=== PATIENT | male | born 1980 | race Caucasian/White ===

== ENCOUNTER 2022-05-18 14:32 | Inpatient (IN) | payer MEDICAID, SELFPAY ==
[2022-05-18 14:33] VITALS: BP 143/99; PULSE 88; RESP 18; TEMP 36.8; O2SAT 96; BMI 27.2
[2022-05-18 16:46] LABS: Absolute Neutrophil Count 1.2 X10^3/uL (2.0-7.7); Basophil# 0.04 X10^3/uL; Basophil% 1.4 % (0-1); Eosinophil# 0.03 X10^3/uL; Hematocrit 40.1 % (40-54); Lymphocyte % 40.5 % (19-41); Mean Corp Hgb Conc 34.9 g/dL (32-36); Mean Corpuscular Hgb 37.3 pg (27.0-32.0); Mean Corpuscular Volume 106.9 fL (80-94); Mean Platelet Vol. 9.1 fl (6.2-12.0); Monocyte# 0.49 X10^3/uL; Monocyte% 16.6 % (0-10); NRBC Flagged by Analyzer 0 % (0-5); Neutrophil # 1.19 X10^3/uL (2.7-7.7); Neutrophil % 40.2 % (47-70); Platelet Count 200 K/mm3 (150-450); RBC Distribution Width CV 15.3 % (11.6-14.6); RBC Distribution Width SD 61.4 fl (35.1-43.9); Red Blood Count 3.75 M/mm3 (4.6-6.2)
--- NOTE | 2022-05-18 16:52 | EX.ED.SAOD ---
HPI History of Present Illness Chief Complaint: ETOH Intox Informant: patient Narrative Narrative: [id number] male presenting to the emergency department with a chief complaint of alcohol detox. Patient states that it is time for him to quit drinking. He went to rehab several years ago. He states he was sober between 2 and 3 years. He states he is not currently working a recently from his significant other. He states that he is just done drinking. He states that his drink of choice is gin. [facility] Medical History Alcohol abuse Hypertension Home Medications amlodipine 5 mg tablet 5 mg PO DAILY 05/18/22 [History Last Taken Unknown] trazodone 50 mg tablet 50 mg PO QHS 05/18/22 [History Last Taken Unknown] Allergy/AdvReac Type Severity Reaction Status Date / Time No Known Allergies Allergy Verified 05/18/22 14:35 Family History (Updated 05/18/22 @ 18:[address] David Mar MD) Other Hypertension Surgical History History of knee surgery Social History (Updated 05/18/22 @ 16:[address] London Rico DO) current gender identity: male Smoking Status: Never smoker Smokeless tobacco user: chewing tobacco alcohol intake: current alcohol intake frequency: 3 or more drinks per day Alcohol type: hard liquor substance use type: does not use EXAM Physical Exam Const Vital Signs: 05/18/22 14:33 Temperature 98.2 F Temperature Source Temporal Pulse Rate 88 Respiratory Rate 18 Blood Pressure 143/99 H Blood Pressure Mean 113 Pulse Ox 96 Oxygen Delivery Method Room Air Positive well nourished and well developed General Appearance ED: well developed HEENT Reports normocephalic, head/scalp atraumatic and moist mucous membranes Eyes PERRL and EOMs intact bilaterally Neck no lymphadenopathy, supple and no JVD Resp normal respiratory effort and clear to auscultation bilaterally Cardio regular rate, regular rhythm and no murmurs GI normal to inspection, nondistended, normoactive bowel sounds and non-tender Palpation: soft Back/Spine no CVA tenderness and normal ROM Extremity normal to inspection General Extremety ED: Negative for edema General Extremity: Negative for edema Neuro oriented x3 and CN's II-XII intact bilaterally Sensorium / Orientation: alert Motor Exam: strength 5/5 throughout Psych mental status grossly normal Mood & Affect: Negative for depressed or tearful Skin no rashes or lesions noted and no wounds MDM MDM MDM Narrative Medical decision making narrative: Medical screening labs will be obtained. If he is in agreement with the rules of the program I will speak with the hospitalist regarding admission Lab Data Attestation: I reviewed the patient's lab results. Labs: Laboratory Results - last 24 hr 05/18/22 05/18/22 05/18/22 16:33 16:33 17:24 WBC 3.0 L RBC 3.75 L Hgb 14.0 Hct 40.1 MCV 106.9 H MCH 37.3 H MCHC 34.9 RDW Std Deviation 61.4 H RDW Coeff of Stefanie 15.3 H Plt Count 200 MPV 9.1 Immature Gran % (Auto) 0.300 Neut % (Auto) 40.2 L Lymph % (Auto) 40.5 Clark % (Auto) 16.6 H Eos % (Auto) 1.0 Baso % (Auto) 1.4 H Absolute Neuts (auto) 1.2 L Absolute Lymphs (auto) 1.20 Nucleated RBC % 0 PT 13.2 INR 1.0 Urine Opiates Screen NEGATIVE Urine Methadone Screen NEGATIVE Ur Barbiturates Screen NEGATIVE Ur Phencyclidine Scrn NEGATIVE Ur Amphetamines Screen NEGATIVE MDMA (Ecstasy) Screen NEGATIVE U Benzodiazepines Scrn NEGATIVE Urine Cocaine Screen NEGATIVE U Cannabinoids Screen NEGATIVE Ur Drug Screen Comment Discharge Plan Dx/Rx/DC Orders Clinical Impression: Alcoholism, Alcohol withdrawal Disposition Disposition: Acute Care Hospital [facility]
[2022-05-18 16:59] LABS: Prothrombin Time (Protime)PT. 13.2 SECONDS (11.7-14.9)
[2022-05-18 18:12] LABS: Amphetamine Urine VISTA NEGATIVE (<1000 ng/mL); Barbiturate Urine VISTA NEGATIVE (< 200 ng/mL); Benzodiazepine Urine VISTA NEGATIVE (< 200 ng/mL); Cocaine Urine VISTA NEGATIVE (< 300 ng/mL); Ecstacy Urine VISTA NEGATIVE (< 500 ng/mL); Methadone Urine VISTA NEGATIVE (< 300 ng/mL); PCP Urine VISTA NEGATIVE (< 25 ng/mL); THC Urine VISTA NEGATIVE (< 50 ng/mL); Vista UDS pH Range 6
--- NOTE | 2022-05-18 18:19 | HP.PCM.HOS_ITS ---
HPI - General General Date of Admission: 05/18/22 HPI Narrative DELMI REBOLLEDO, is a 42 M who presents to the hospital requesting alcohol detox. He went to rehab several years ago and that he had been sober for about 2 to 3years after that stent in rehab however he started drinking again. He does not seem to be interested in having much of a conversation but states that he is just done drinking and he needs help. He generally drinks gin. [facility] Medical History Alcohol abuse Hypertension Home Medications amlodipine 5 mg tablet 5 mg PO DAILY 05/18/22 [History Last Taken Unknown] trazodone 50 mg tablet 50 mg PO QHS 05/18/22 [History Last Taken Unknown] Allergy/AdvReac Type Severity Reaction Status Date / Time No Known Allergies Allergy Verified 05/18/22 14:35 Family History (Updated 05/18/22 @ 18:[address] David Mar MD) Other Hypertension Surgical History History of knee surgery Social History (Updated 05/18/22 @ 16:[address] London Rico DO) current gender identity: male Smoking Status: Never smoker Smokeless tobacco user: chewing tobacco alcohol intake: current alcohol intake frequency: 3 or more drinks per day Alcohol type: hard liquor substance use type: does not use ROS Constitutional Constitutional: Denies chills, fatigue, fever(s) or malaise Eyes Eyes: Denies blurry vision ENT HEENT: Denies headache(s) or nasal discharge Cardiovascular Cardiovascular: Denies chest pain, dyspnea on exertion or syncope Respiratory/Chest Respiratory/Chest: Denies cough, shortness of breath at rest or shortness of breath with exertion Gastrointestinal Gastrointestinal: Denies constipation, diarrhea, nausea or vomiting Genitourinary Genitourinary: Denies dysuria Neurologic Neurologic: Reports tremor(s); Denies focal weakness or numbness Psychiatric Psychiatric: Reports anxiety; Denies depression Vital Signs Vital Signs Vital Signs: 05/18/22 14:33 Temperature 98.2 F Temperature Source Temporal Pulse Rate 88 Respiratory Rate 18 Blood Pressure 143/99 H Blood Pressure Mean 113 Pulse Ox 96 Oxygen Delivery Method Room Air Weight Weight: 218 lb Body Mass Index (BMI) 27.2 Physical Exam Const alert, oriented x3 and no apparent distress Constitutional Narrative: Tremors General Appearance: cooperative HEENT normocephalic and moist oral mucous membranes Eyes PERRL, EOMs intact bilaterally and conjunctivae normal Neck supple and no JVD Resp normal respiratory effort, no retractions, no use of accessory muscles and clear to auscultation bilaterally Auscultation: Negative for crackles, rales, rhonchi or wheezes Cardio regular rate, regular rhythm, S1 normal heart sound, S2 normal heart sound and no murmurs GI soft to palpation, non-tender and non-distended; Negative for hepatosplenomegaly Extremity no clubbing, cyanosis or edema Skin no rashes or lesions noted Neuro no focal motor deficits and no sensory deficits noted Psych Mood & Affect: anxious and flat affect Results Lab / Micro Data Result Diagrams: 05/18/22 16:33 05/18/22 16:33 Labs: Laboratory Results - last 24 hr 05/18/22 16:33: WBC 3.0 L, RBC 3.75 L, Hgb 14.0, Hct 40.1, MCV 106.9 H, MCH 37.3 H, MCHC 34.9, RDW Std Deviation 61.4 H, RDW Coeff of Stefanie 15.3 H, Plt Count 200, MPV 9.1, Immature Gran % (Auto) 0.300, Neut % (Auto) 40.2 L, Lymph % (Auto) 40.5 , [place] % (Auto) 16.6 H, Eos % (Auto) 1.0, Baso % (Auto) 1.4 H, Absolute Neuts (auto) 1.2 L, Absolute Lymphs (auto) 1.20, Nucleated RBC % 0 05/18/22 16:33: PT 13.2, INR 1.0 05/18/22 17:24: Urine Opiates Screen NEGATIVE, Urine Methadone Screen NEGATIVE, Ur Barbiturates Screen NEGATIVE, Ur Phencyclidine Scrn NEGATIVE, Ur Amphetamines Screen NEGATIVE, MDMA (Ecstasy) Screen NEGATIVE, U Benzodiazepines Scrn NEGATIVE, Urine Cocaine Screen NEGATIVE, U Cannabinoids Screen NEGATIVE, Ur Drug Screen Comment Assessment & Plan Assessment/Plan (1) Alcohol withdrawal: PLAN: Plan 1. Acute alcohol withdrawal ? Continue with the alcohol withdrawal protocol ? We will have him follow-up with 180 while here to develop an outpatient plan ? CIWA scores of 2 on admission, will continue to monitor 2. Hypertension ? Stable ? Continue with [facility] DVT: Ambulation Charges/Coding Visit Charges Inpatient E&M: 53788 Init Hosp L2
[2022-05-18 18:49] VITALS: BP 124/85; PULSE 59; RESP 17; TEMP 36.7; O2SAT 93
[2022-05-18 19:05] VITALS: BMI 25.8
[2022-05-18 19:06] VITALS: BMI 25.8
[2022-05-18 19:15] VITALS: BP 122/88; PULSE 66; RESP 18; TEMP 36.9; O2SAT 97
--- NOTE | 2022-05-18 19:54 | CM.ED ---
KAROLINE Note Reason for consult: RAMP Referral Source: Case Find SW met with patient. Patient stated he is at the hospital for detox from alcohol. SW asked patient how much alcohol drank and he said enough. Patient reports he has not had beer for 2 months but drinks 10-16 shots a day. Patient reports he is currently linked with Ronda at [facility] for AOD counseling. Patient was educated on the rules for the RAMP program including 1) no visitors 2) no phones and 3) belongings locked. Patient said I need my phone for my unemployment check. SW advised that phones will need to be secured and he will not have access to it while in detox. Patient verbalized understanding. Patient voiced he has signed the RAMP contract. SW called infection control manager treatment navigator and left voice mail message advising of RAMP admission. KAROLINE received call from Gely from Treatment Navigator and SW updated her with information on patient's RAMP admission. Plan: AD RAMOS
[2022-05-18 19:55] LABS: ALB/GLOB Ratio 1.2 RATIO (0.9-2.4); AST(SGOT) 176 U/L (15-37); Alanine Aminotransfer ALT/SGPT 91 U/L (16-61); Alkaline Phosphatase 76 U/L (45-117); Anion Gap 12 (5-15); BUN 7 mg/dL (7-18); BUN/Creat Ratio 12.2 RATIO (10-20); Calcium,Total 8.5 mg/dL (8.5-10.1); Chloride 108 mmol/L (98-107); Creatinine, Serum 0.57 mg/dL (0.70-1.30); EST Glomerular Filtration Rate 166 mL/min (>60); Est Glom Filt Rate - Afr Amer 201 mL/min (>60); Estimated Creatinine Clearance 220.48 ml/min; Globulin 3.2 g/dL (2.2-4.2); Glucose 95 mg/dL (74-106); Potassium 3.5 mmol/L (3.5-5.1); Protein, Total 7.2 g/dL (6.4-8.2); Sodium Level 145 mmol/L (136-145)
[2022-05-18 20:00] VITALS: BP 144/78; PULSE 65; RESP 16; TEMP 36.9; O2SAT 98
[2022-05-18] MEDS: Phenobarbital 32.4 MG Tablet 64.8 MG PO (20:03)
[2022-05-18] MEDS: Gabapentin 300 MG Capsule PO (20:03)
--- NOTE | 2022-05-18 20:35 | NURSING ---
pt broke his zip tie on his tote and got his phone out and states he was getting his shirt after nurse had already reminded him that he would get his personal belongings back at discharge. reviewed the contract he signed at admit. pt states he wants to stay as a pt and he understands the contract. phone placed back in tote and zip ties replaced. nursing supervisor cutting and sewing room aware and she will let security know.
--- NOTE | 2022-05-18 20:40 | NURSING ---
Patient non compliant with RAMP contract. States that he is understanding of what the contract states, Both this nurse and RN told him twice that if he cannot comply we will ask for him to leave. Patient broke zip ties off of tote, stated he wanted his shirt, explained he cannot have his shirt. Minutes later checked cameras and he was lying in bed on his phone after getting into to tote once again. Given contract on paper and left in room. RN notified Division Leader.
[2022-05-18] MEDS: traZODone 100 MG Tablet PO (22:03)
[2022-05-19] VITALS (8 sets, daily range): BP systolic 124–147; BP diastolic 78–97; PULSE 60–94; RESP 14–18; TEMP 36.4–37.2; O2SAT 98–99
[2022-05-19] MEDS: hydrOXYzine PAM 25 MG Capsule 50 MG PO (00:51)
[2022-05-19] MEDS: Phenobarbital 32.4 MG Tablet 64.8 MG PO ×7 (00:51→23:13)
[2022-05-19] MEDS: Gabapentin 300 MG Capsule PO (05:06)
[2022-05-19] MEDS: Folic Acid 1 MG Tablet PO (08:09)
[2022-05-19] MEDS: Thiamine Hydrochloride 100 MG Tablet PO (08:10)
--- NOTE | 2022-05-19 08:50 | PCM.PN.HOSP ---
Subjective Subjective Significant worsening overnight, CIWA was of 21 Objective Data Objective Data Vital Signs: Vital Signs Temp Pulse Resp BP Pulse Ox 98.5 F 68 14 146/88 H 99 05/19/22 05:11 05/19/22 05:11 05/19/22 05:11 05/19/22 05:11 05/19/22 05:11 Oxygen Delivery Method Room Air Weight: 223 lb 8.78 oz Body Mass Index (BMI) 25.8 Lab / Micro Data Result Diagrams: 05/18/22 16:33 05/18/22 16:33 Labs: Laboratory Results - last 24 hr 05/18/22 16:33: WBC 3.0 L, RBC 3.75 L, Hgb 14.0, Hct 40.1, MCV 106.9 H, MCH 37.3 H, MCHC 34.9, RDW Std Deviation 61.4 H, RDW Coeff of Stefanie 15.3 H, Plt Count 200, MPV 9.1, Immature Gran % (Auto) 0.300, Neut % (Auto) 40.2 L, Lymph % (Auto) 40.5, [place] % (Auto) 16.6 H, Eos % (Auto) 1.0, Baso % (Auto) 1.4 H, Absolute Neuts (auto) 1.2 L, Absolute Lymphs (auto) 1.20, Nucleated RBC % 0 05/18/22 16:33: PT 13.2, INR 1.0 05/18/22 16:33: Sodium 145, Potassium 3.5, Chloride 108 H, Carbon Dioxide 25.0, Anion Gap 12, BUN 7, Creatinine 0.57 L, Estim Creat Clear Calc 220.48, Est GFR (MDRD) Af Amer 201, Est GFR (MDRD) Non-Af 166, BUN/Creatinine Ratio 12.2, Glucose 95, Calcium 8.5, Total Bilirubin 0.70, AST 176 H, ALT 91 H, Alkaline Phosphatase 76, Total Protein 7.2, Albumin 4.0, Globulin 3.2, Albumin/Globulin Ratio 1.2 05/18/22 16:33: Ethyl Alcohol 465.0 H* 05/18/22 17:24: Urine Opiates Screen NEGATIVE, Urine Methadone Screen NEGATIVE, Ur Barbiturates Screen NEGATIVE, Ur Phencyclidine Scrn NEGATIVE, Ur Amphetamines Screen NEGATIVE, MDMA (Ecstasy) Screen NEGATIVE, U Benzodiazepines Scrn NEGATIVE, Urine Cocaine Screen NEGATIVE, U Cannabinoids Screen NEGATIVE, Ur Drug Screen Comment Physical Exam Const alert, oriented x3 and no apparent distress Constitutional Narrative: Tremors General Appearance: cooperative HEENT normocephalic and moist oral mucous membranes Eyes PERRL, EOMs intact bilaterally and conjunctivae normal Neck supple and no JVD Resp normal respiratory effort, no retractions, no use of accessory muscles and clear to auscultation bilaterally Auscultation: Negative for crackles, rales, rhonchi or wheezes Cardio regular rate, regular rhythm, S1 normal heart sound, S2 normal heart sound and no murmurs GI soft to palpation, non-tender and non-distended; Negative for hepatosplenomegaly Extremity no clubbing, cyanosis or edema Skin no rashes or lesions noted Neuro no focal motor deficits and no sensory deficits noted Psych Mood & Affect: anxious and flat affect Assessment & Plan Assessment/Plan (1) Alcohol withdrawal: PLAN: Plan 1. Acute alcohol withdrawal ? Continue with the alcohol withdrawal protocol ? We will have him follow-up with 180 while here to develop an outpatient plan ? CIWA scores of 2 on admission with worsening to 21 overnight 2. Hypertension ? Stable ? Continue with Norvasc DVT: Ambulation Charges/Coding Visit Charges Inpatient E&M: 10383 Subs Hosp L2
[2022-05-19] MEDS: amLODIPine 5 MG Tablet PO (10:58)
[2022-05-19] MEDS: traZODone 100 MG Tablet PO (23:13)
[2022-05-20] MEDS: Phenobarbital 32.4 MG Tablet 64.8 MG PO ×5 (04:49→20:03)
[2022-05-20 04:53] VITALS: BP 130/91; PULSE 62; RESP 16; TEMP 37.3; O2SAT 96
[2022-05-20 07:50] VITALS: BP 134/96; PULSE 68; RESP 18; TEMP 37.1; O2SAT 99
[2022-05-20] MEDS: Folic Acid 1 MG Tablet PO (07:54)
[2022-05-20] MEDS: amLODIPine 5 MG Tablet PO (07:54)
[2022-05-20] MEDS: Thiamine Hydrochloride 100 MG Tablet PO (07:54)
--- NOTE | 2022-05-20 09:45 | PN.HOSP_ITS ---
Subjective Subjective Doing well, CIWA of 1, better today. No issues overnight Objective Data Objective Data Vital Signs: Vital Signs Temp Pulse Resp BP Pulse Ox 98.7 F 68 18 134/96 H 99 05/20/22 07:50 05/20/22 07:50 05/20/22 07:50 05/20/22 07:50 05/20/22 07:50 Oxygen Delivery Method Room Air Weight: 223 lb 8.78 oz Body Mass Index (BMI) 25.8 Medical Nutrition Assessment Dietitian: Malnutrition Criteria Met Start: 05/19/22 1 0:46 Freq: Status: Active Protocol: Document 05/19/22 10:47 RMA (Rec: 05/19/22 10:47 RMA [id number]) Nutrition Malnutrition Evidence of Malnutrition Exists Yes Malnutrition (severe): Social/Behavioral/ Environmental Evidenced By Suboptimal Energy Intake ( Severe),Weight Loss (Severe) Clinical Problem Chronic Disease or Condition Related Malnutrition Etiology Severe protein-calorie malnutrition in the context of social circumstance related to alcohol abuse and inadequate nutrient-dense oral intake Signs/Symptoms as evidenced by ~6-7% wt loss x past 1-2 months and PO meeting less than 50% estimated nutrition needs x past 1 month Status Active Problem Recommendation Dietitian Recommendations/Changes Continue regular diet---will add extra 1-2 oz protein/meat Q meal. Will d/c ensure enlive w/ medpass as per patient request /refusal. Additional ONS as needed, will encourage intake with meal trays for now as per patient request. Lab / Micro Data Result Diagrams: 05/18/22 16:33 05/18/22 16:33 Physical Exam Narrative Const alert, oriented x3 and no apparent distress General Appearance: cooperative HEENT normocephalic and moist oral mucous membranes Eyes PERRL, EOMs intact bilaterally and conjunctivae normal Neck supple and no JVD Resp normal respiratory effort, no retractions, no use of accessory muscles and clear to auscultation bilaterally Auscultation: Negative for crackles, rales, rhonchi or wheezes Cardio regular rate, regular rhythm, S1 normal heart sound, S2 normal heart sound and no murmurs GI soft to palpation, non-tender and non-distended; Negative for hepatosplenomegaly Extremity no clubbing, cyanosis or edema Skin no rashes or lesions noted Neuro no focal motor deficits and no sensory deficits noted Psych Mood & Affect: anxious and flat affect Assessment & Plan Assessment/Plan (1) Alcohol withdrawal: PLAN: Plan 1. Acute alcohol withdrawal ? Continue with the alcohol withdrawal protocol ? Was evaluated by 180 and set him up with therapy and down in [place] ? CIWA is better, he has an appointment on Saturday however he would like to go home tomorrow if possible 2. Hypertension ? Stable ? Continue with Norvasc DVT: Ambulation Charges/Coding Visit Charges Inpatient E&M: 34898 Subs Hosp L2
[2022-05-20 15:43] VITALS: BP 138/97; PULSE 62; RESP 18; TEMP 37.3; O2SAT 99
[2022-05-20 19:56] VITALS: BP 147/104; PULSE 78; RESP 18; TEMP 37.2; O2SAT 99
[2022-05-20] MEDS: traZODone 100 MG Tablet PO (22:02)
[2022-05-21] MEDS: Phenobarbital 32.4 MG Tablet 64.8 MG PO ×2 (00:40→04:40)
[2022-05-21 02:09] VITALS: BP 149/95; PULSE 68; RESP 18; TEMP 36.8; O2SAT 98
[2022-05-21 07:44] VITALS: BP 145/114; PULSE 60; RESP 14; TEMP 36.9; O2SAT 100
[2022-05-21] MEDS: amLODIPine 5 MG Tablet PO (07:48)
[2022-05-21] MEDS: Folic Acid 1 MG Tablet PO (07:48)
[2022-05-21] MEDS: Thiamine Hydrochloride 100 MG Tablet PO (07:48)
--- NOTE | 2022-05-21 09:27 | DCINST_ITS ---
Discharge Instructions Diet Discharge Diet: No restrictions Dressing / Incision Call your doctor if you observe: Fever of 101 or Higher, Shortness of breath, Dizziness, Fainting spells, Swelling in the ankles, Chest pain and Increased palpitations (irregular heartbeat) Follow Up Care Test Results: Test results from this visit will be discussed in further detail at your follow- up appointment, if applicable. Discharge Plan Admission Admit Date/Time: 05/18/22 18:17 Attending Provider: David Mar Primary Care Provider: Blas Villagomez Discharge Orders/Prescriptions Prescriptions: Continued trazodone 50 mg Tablet 50 mg PO QHS amlodipine 5 mg Tablet 5 mg PO DAILY Referrals / Follow Up: Blas Villagomez MD [Primary Care Provider] - Within 1 Week NOT,DEFINED [NON-STAFF] - Disposition Disposition (needs filled in before D/C Order can be placed): Home, Self Care
--- NOTE | 2022-05-21 09:28 | PCM.DC.SUM ---
Providers Date of Admission: 05/18/22 Primary Care Physician: Dr. Blas Villagomez MD Reason For Visit: ETOH WITHDRAWL Diagnosis Discharge Diagnosis (1) Alcohol withdrawal: Status: Acute Code(s): F10.239 - Alcohol dependence with withdrawal, unspecified Medications at Discharge Home Medications amlodipine 5 mg tablet 5 mg PO DAILY bp 05/18/22 trazodone 50 mg tablet 50 mg PO QHS mood 05/18/22 Hospital Course Operations None Procedures None Summary of Care Provided Minutes Spent on Discharge: 37 Hospital Course: Per HPI: DELMI REBOLLEDO, is a 42 M who presents to the hospital requesting alcohol detox.? He went to rehab several years ago and that he had been sober for about 2 to 3years after that stent in rehab however he started drinking again.? He does not seem to be interested in having much of a conversation but states that he is just done drinking and he needs help.? He generally drinks gin. Hospital Course: 1.? Acute alcohol withdrawal ? Continue with the alcohol withdrawal protocol ? Was evaluated by 180 and set him up with therapy and down in [place] ? CIWA is better ? Feels much better today and I discussed with him the possibility for discharge, he expressed understanding of the risk benefits going home and would like to go home today. He does have a scheduled appointment with the rehab down in [place] on Saturday and he thinks that he will be able to stay away from alcohol between now and then. 2.? Hypertension ? Stable ? Continue with Norvasc Physical Exam Narrative Const alert, oriented x3 and no apparent distress General Appearance: cooperative HEENT normocephalic and moist oral mucous membranes Eyes PERRL, EOMs intact bilaterally and conjunctivae normal Neck supple and no JVD Resp normal respiratory effort, no retractions, no use of accessory muscles and clear to auscultation bilaterally Auscultation: Negative for crackles, rales, rhonchi or wheezes Cardio regular rate, regular rhythm, S1 normal heart sound, S2 normal heart sound and no murmurs GI soft to palpation, non-tender and non-distended; Negative for hepatosplenomegaly Extremity no clubbing, cyanosis or edema Skin no rashes or lesions noted Neuro no focal motor deficits and no sensory deficits noted Psych Mood & Affect: anxious and flat affect Medical Records Data Medical Nutrition Assessment Dietitian: Malnutrition Criteria Met Start: 05/19/22 10:46 Freq: Status: Active Protocol: Document 05/19/22 10:47 RMA (Rec: 05/19/22 10:47 RMA [id number]) Nutrition Malnutrition Evidence of Malnutrition Exists Yes Malnutrition (severe): Social/Behavioral/ Environmental Evidenced By Suboptimal Energy Intake ( Severe),Weight Loss (Severe) Clinical Problem Chronic Disease or Condition Related Malnutrition Etiology Severe protein-calorie malnutrition in the context of social circumstance related to alcohol abuse and inadequate nutrient-dense oral intake Signs/Symptoms as evidenced by ~6-7% wt loss x past 1-2 months and PO meeting less than 50% estimated nutrition needs x past 1 month Status Active Problem Recommendation Dietitian Recommendations/Changes Continue regular diet---will add extra 1-2 oz protein/meat Q meal. Will d/c ensure enlive w/ medpass as per patient request /refusal. Additional ONS as needed, will encourage intake with meal trays for now as per patient request. Weight / BMI Weight Weight: 223 lb 8.78 oz Body Mass Index (BMI) 25.8 ABG / Lab / Microbiology Data Result Diagrams: 05/18/22 16:33 05/18/22 16:33 D/C Instructions Discharge Diet: No restrictions Call your doctor if you observe: Fever of 101 or Higher, Shortness of breath, Dizziness, Fainting spells, Swelling in the ankles, Chest pain and Increased palpitations (irregular heartbeat) Meaningful Use Info Meaningful Use Diagnoses (Choose all that apply): None applicable Discharge Plan Admission Admit Date/Time: 05/18/22 18:17 Attending Provider: David Mar Primary Care Provider: Blas Villagomez Discharge Orders/Prescriptions Prescriptions: Continued trazodone 50 mg Tablet 50 mg PO QHS amlodipine 5 mg Tablet 5 mg PO DAILY Referrals / Follow Up: Blas Villagomez MD [Primary Care Provider] - Within 1 Week NOT,DEFINED [NON-STAFF] - Disposition Disposition (needs filled in before D/C Order can be placed): Home, Self Care Charges/Coding Visit Charges Inpatient E&M: 00020 Disch Hosp
--- NOTE | 2022-05-21 09:47 | ADDICTION ---
Pt was seen this weekend by on-call addiction coordinator. His d/c plan and assessments were faxed and placed in his charts. He has an appointment Saturday in [place] at [facility] with Ronda.
== END 2022-05-21 11:21 | disposition home or self-care (01) | DRG 772 ==
LOC: ED 17:44 → MS3 18:35
PROVIDERS: Admitting Provider Family Medicine; Emergency Provider Emergency Medicine; PCP Family Medicine; Visit Provider Family Medicine
DX: F10.239 Alcohol dependence with withdrawal, unspecified (principal); E43 Unspecified severe protein-calorie malnutrition; I10 Essential (primary) hypertension; F17.220 Nicotine dependence, chewing tobacco, uncomplicated; Z68.27 Body mass index [BMI] 27.0-27.9, adult; Z79.899 Other long term (current) drug therapy
CPT/HCPCS: 80053; 80307; 82077; 85025; 85610; 97802; 99284; 99406; A4216

== ENCOUNTER 2023-01-28 20:44 | Inpatient (IN) | payer MEDICAID, SELFPAY ==
[2023-01-28 20:45] VITALS: BP 134/85; PULSE 81; RESP 15; TEMP 36.6; O2SAT 99
--- NOTE | 2023-01-28 22:14 | EKG12_ITS ---
Test Reason : DYSRHYTHMIA Blood Pressure : / mmHG Vent. Rate : 068 BPM Atrial Rate : 068 BPM P-R Int : 154 ms QRS Dur : 086 ms QT Int : 420 ms P-R-T Axes : 033 022 025 degrees QTc Int : 446 ms Normal sinus rhythm Septal infarct , age undetermined Abnormal ECG Confirmed by STEPHEN ACOSTA, FERCHO ([id number]), book editor DEMETRIO FLANAGAN ([id number]) on 01/30/2023 1:16:41 PM Referred By: TL Confirmed By:FERCHO MITCHELL MD
--- NOTE | 2023-01-28 22:15 | EX.ED.DYSGE1 ---
HPI History of Present Illness Chief Complaint: Seizure Informant: patient and family Narrative Narrative: Presents by private vehicle here with sister and mother witnessed seizure 7:30 PM. Patient history of daily alcohol use with drink of choice is gin. 6-8 shots a day. He wakes up with morning tremors. He has not had seizures in the past. He reports he is trying to detox himself. Report he is vomiting throughout the day. Last drink last evening. Mother witnessed 2 minutes tonic-clonic activity with postictal period. he has not had seizures in the past. Patient with history of hypertension per sister. Denies any recreational drug use. He had alcohol detox this past summer he was transferred over to [facility] however reported after going home he relapsed. States currently is not nauseated. He would like help with his alcohol. Denies homicidal or suicidal ideations. Prior similar symptoms: No PFSH PFSH Medical History Alcohol abuse Alcoholism Hypertension Home Medications amlodipine 5 mg tablet 5 mg PO DAILY bp 05/18/22 [History Last Taken 05/18/22] trazodone 50 mg tablet 50 mg PO QHS mood 05/18/22 [History Last Taken 05/17/22] Allergy/AdvReac Type Severity Reaction Status Date / Time No Known Allergies Allergy Verified 01/28/23 20:48 Family History Other Hypertension Surgical History History of knee surgery Social History Smoking Status: Never smoker Smokeless tobacco user: chewing tobacco alcohol intake: current alcohol intake frequency: 3 or more drinks per day Alcohol type: hard liquor substance use type: does not use ROS ROS ED Constitutional Constitutional ED: Denies chills, fever(s) or sweats Eyes Eyes: Denies change in vision ENT ENT ED: Denies dysphagia or sore throat Cardiovascular Cardiovascular: Denies chest pain, leg edema, palpitations or racing heartbeat Respiratory/Chest Respiratory/Chest: Denies cough, dyspnea or dyspnea on exertion Gastrointestinal Gastrointestinal: Denies abdominal pain, diarrhea, nausea or vomiting Genitourinary Genitourinary ED: Denies dysuria, hematuria or urinary frequency Musculoskeletal Musculoskeletal: Denies back pain, extremity pain or neck pain Integumentary Denies rash or wounds Neurologic Neurologic: Reports other Details: Seizure ; Denies headache(s), paresthesias or weakness EXAM Physical Exam Const Vital Signs: 01/28/23 20:45 Temperature 97.8 F Temperature Source Temporal Pulse Rate 81 Respiratory Rate 15 Blood Pressure 134/85 H Blood Pressure Mean 101 Pulse Ox 99 Oxygen Delivery Method Room Air Positive well nourished and well developed General Appearance ED: well developed and NAD HEENT Reports moist mucous membranes HEENT Narrative: Bilateral tongue abrasion, no active bleeding no laceration. normocephalic and atraumatic Eyes PERRL, EOMs intact bilaterally and conjunctivae normal General Eye ED: Yes normal appearance of both eyes Neck no lymphadenopathy and supple General: Negative for tenderness Chest Wall Chest: Negative for tenderness Resp normal respiratory effort and normal air movement Effort and Inspection: symmetric chest movement; Negative for respiratory distress Cardio regular rate, regular rhythm and no murmurs Peripheral Pulses: pulses 2+ throughout GI normal to inspection, nondistended, normoactive bowel sounds and non-tender Palpation: Negative for guarding or rebound tenderness present Back/Spine no CVA tenderness and no thoracic nor lumbar tenderness Extremity normal to inspection General Extremety ED: Negative for edema or tenderness General Extremity: Negative for edema Neuro oriented x3, CN's II-XII intact bilaterally and no sensory deficits noted Sensorium / Orientation: awake and alert Skin no rashes or lesions noted and no wounds MDM MDM MDM Narrative Medical decision making narrative: Interventions / MDM: Differential diagnosis: Seizure new onset, alcohol withdrawal seizure, alcoholism Diagnosis considered but do not suspect: Brain tumor, however negative CT scan My EKG interpretation: sinus rate of 68, no ST or T wave changes QTc 446. Imaging independently reviewed and interpreted by myself: CT brain: No acute process no mass External documents reviewed: N/A Test considered but not ordered:N/A ED course: Patient tongue abrasions witnessed seizure alcohol history likely alcohol withdrawal seizure. Work-up was initiated. He is given phenobarbital due to withdrawal seizure alcohol history. Lab work-up stable hemoglobin 14 creatinine 0.72 potassium was 3.3. Alcohol less than 3. Tox screen is pending. I did speak with hospitalist Dr. Sheppard for admission to PCU. CT brain obtained also negative. Re-evaluation: stable at 2318 Disposition discussed with patient/family/significant other: Patient and family Case discussed with consulting clinician: Hospitalist, Dr. Sheppard Lab Data Attestation: I reviewed the patient's lab results. Labs: Laboratory Results - last 24 hr 01/28/23 01/28/23 01/28/23 22:25 22:25 22:25 WBC 8.1 RBC 3.78 L Hgb 14.1 Hct 41.6 MCV 110.1 H MCH 37.3 H MCHC 33.9 RDW Std Deviation 55.4 H RDW Coeff of Stefanie 13.5 Plt Count 152 MPV 9.4 Immature Gran % (Auto) 0.500 Neut % (Auto) 86.8 H Lymph % (Auto) 5.7 L [place] % (Auto) 6.5 Eos % (Auto) 0.0 Baso % (Auto) 0.5 Absolute Neuts (auto) 7.0 Absolute Lymphs (auto) 0.46 L Nucleated RBC % 0 Differential Comment SCANNED Sodium 138 Potassium 3.3 L Chloride 99 Carbon Dioxide 29.0 Anion Gap 10 BUN 7 Creatinine 0.72 Est GFR (MDRD) Af Amer 154 Est GFR (MDRD) Non-Af 127 BUN/Creatinine Ratio 9.7 L Glucose 137 H Calcium 9.4 Ethyl Alcohol < 3.0 Radiography Diagnostic Testing: Clinical Impression(s) from Imaging Studies Brain CT 01/28/23 22:16 IMPRESSION: Negative Brain CT without contrast. Electronically Signed: Shai Lea MD at 23:02 EST , EKG Initial EKG: Attestation: I personally reviewed and interpreted this EKG as follows: Comments: sinus rate of 68, no ST or T wave changes QTc Discharge Plan Triage Chief Complaint: Seizure ED Provider: Leandro Arevalo Dx/Rx/DC Orders Clinical Impression: Alcohol withdrawal seizure, Alcoholism, History of hypertension Primary Care Provider: Blas Villagomez Disposition Disposition: [facility]
--- NOTE | 2023-01-28 22:16 | CT_ITS ---
INDICATION: Seizure EXAMINATION: CT BRAIN - CT Head or Brain W/O Contrast Injection TECHNIQUE: Multiple axial images were obtained of the head without intravenous contrast. A radiation dose optimization technique was used for this scan. IV Contrast dosage and agent: None. COMPARISON: None FINDINGS: BRAIN PARENCHYMA: No intra- or extra-axial hemorrhage. No evidence of acute infarct. No intracranial mass or mass effect. There is preservation of the al/white matter interface. Posterior fossa structures are unremarkable. CSF SPACES: Appropriate for age. No hydrocephalus. Basal cisterns are patent. CALVARIUM, SKULL BASE, PARANASAL SINUSES AND MASTOID AIR CELLS: Clear. No discrete lytic or blastic abnormalities. ORBITS: Both globes, extraocular muscles, optic nerves and retrobulbar fat appear unremarkable. ASPECTS Score for Acute Strokes: 10 CT/Brain/Head without Contrast IMPRESSION: Negative Brain CT without contrast. Electronically Signed: Shai Lea MD at 23:02 EST ,
--- NOTE | 2023-01-28 22:19 | PCM.HP.STD ---
HPI - General General Date of Admission: 01/28/23 Date of Service: 01/28/23 Chief Complaint: Desire for detoxification HPI Narrative DELMI REBOLLEDO, is a 42 M with a significant history of alcoholism; tobacco abuse and hypertension who presents emergency department with a desire for alcohol detoxification. Patient attempted to self detox from alcohol at home. Family report that patient had a tonic clonic seizures few hours before presentation. Patient has been drinking since his teenage years. Initially he was drinking beer but now he drinks gin. He drinks about 6-8 shots of gin almost every day. Last time he drank was a day before presentation. Patient was at a hospital in May 2022 for alcohol withdrawal. [facility] Medical History Alcohol abuse Alcoholism Hypertension Home Medications amlodipine 5 mg tablet 5 mg PO DAILY bp 05/18/22 [History Last Taken 05/18/22] trazodone 50 mg tablet 50 mg PO QHS mood 05/18/22 [History Last Taken 05/17/22] Allergy/AdvReac Type Severity Reaction Status Date / Time No Known Allergies Allergy Verified 01/28/23 20:48 Family History Other Hypertension Surgical History History of knee surgery Social History Smoking Status: Never smoker Smokeless tobacco user: chewing tobacco alcohol intake: current alcohol intake frequency: 3 or more drinks per day Alcohol type: hard liquor substance use type: does not use ROS ROS Narrative Pertinent positives and pertinent negatives as noted in HPI. All other systems were reviewed and are negative Vital Signs Vital Signs Vital Signs: 01/28/23 20:45 Temperature 97.8 F Temperature Source Temporal Pulse Rate 81 Respiratory Rate 15 Blood Pressure 134/85 H Blood Pressure Mean 101 Pulse Ox 99 Oxygen Delivery Method Room Air Physical Exam Narrative Physical exam: General: Well-nourished, well-developed. Head: Normocephalic, atraumatic, no tenderness Eyes: Vision is grossly intact. EOMI ENT: Excoriations on bilateral side of tongue. Moist mucous membranes, no rhinorrhea Neck: Nontender, No thyromegaly. CVS: Regular rate and rhythm. S1-S2 present. No murmur, gallop or rub. Respiratory : clear to auscultation bilaterally, chest wall nontender, no wheezing Abdomen: Soft, nontender, nondistended, normal bowel sounds, no masses : Deferred Back: Nontender, no CVA tenderness, no midline spinal tenderness, deformities, step-offs Extremities: Nontender full range of motion, no trauma Skin: Normal color, no trauma, abrasions Neuro: Alert, oriented, cranial nerves II through XII grossly intact. Tremulousness. Psychiatry: Normal mood. Anxious. Results Lab / Micro Data Result Diagrams: 01/28/23 22:25 01/28/23 22:25 Assessment & Plan Assessment/Plan (1) Alcohol withdrawal seizure: (2) Alcoholism: (3) History of hypertension: PLAN: Plan Alcohol dependence and desire for detoxification/alcohol withdrawal seizure Toxicology showed ethanol level of less than 3. Brain CT was independently interpreted and I agree with radiology interpretation of negative brain CT without contrast Patient be started on phenobarbital and other adjunctive medications: Gabapentin as needed; dicyclomine as needed; Vistaril as needed; Imodium as needed; trazodone as needed; Zofran as needed; scheduled thiamine; and schedule folic acid. Monitor CIWA score Seizure precautions ordered. Hypertension Blood pressure is not within goal Amlodipine continued. Trend blood pressure and adjust blood pressure medications. Tobacco abuse Counseled Nicotine patch prescribed. DVT prophylaxis Low risk Encourage to ambulate Charges/Coding Visit Charges Inpatient E&M: 72779 Init Hosp L2
[2023-01-28 22:31] LABS: Absolute Lymphocyte Count 0.46 X10^3/uL (0.83-4.51); Basophil# 0.04 X10^3/uL; Basophil% 0.5 % (0-1); Hematocrit 41.6 % (40-54); Hemoglobin 14.1 g/dL (13.0-16.5); Lymphocyte # 0.46 X10^3/ul (0.83-4.51); Lymphocyte % 5.7 % (19-41); Mean Corp Hgb Conc 33.9 g/dL (32-36); Mean Corpuscular Hgb 37.3 pg (27.0-32.0); Mean Corpuscular Volume 110.1 fL (80-94); Mean Platelet Vol. 9.4 fl (6.2-12.0); Monocyte# 0.53 X10^3/uL; Monocyte% 6.5 % (0-10); NRBC Flagged by Analyzer 0 % (0-5); Neutrophil # 7.03 X10^3/uL (2.7-7.7); Neutrophil % 86.8 % (47-70); POSITIVE DIFFERENTIAL YES; Platelet Count 152 K/mm3 (150-450); RBC Distribution Width CV 13.5 % (11.6-14.6); RBC Distribution Width SD 55.4 fl (35.1-43.9); Red Blood Count 3.78 M/mm3 (4.6-6.2); White Blood Count 8.1 K/mm3 (4.4-11.0)
[2023-01-28 22:32] LABS: Differential Indicated SCAN CRITERIA MET
[2023-01-28 22:44] VITALS: BP 153/103
[2023-01-28] MEDS: Phenobarbital 32.4 MG Tablet 97.2 MG PO (22:51)
[2023-01-28] MEDS: 0.9% Normal Saline 1,000 ML 1000 ML IV (22:51)
[2023-01-28 22:59] LABS: Alcohol, Blood (Medical)-Serum < 3.0 mg/dL
[2023-01-28 23:01] LABS: Anion Gap 10 (5-15); BUN 7 mg/dL (7-18); BUN/Creat Ratio 9.7 RATIO (10-20); Calcium,Total 9.4 mg/dL (8.5-10.1); Chloride 99 mmol/L (98-107); Creatinine, Serum 0.72 mg/dL (0.70-1.30); EST Glomerular Filtration Rate 127 mL/min (>60); Est Glom Filt Rate - Afr Amer 154 mL/min (>60); Glucose 137 mg/dL (74-106); Potassium 3.3 mmol/L (3.5-5.1); Sodium Level 138 mmol/L (136-145)
[2023-01-28 23:06] LABS: Differential Comment SCANNED
[2023-01-28 23:15] VITALS: BP 153/103; PULSE 68; RESP 16; TEMP 36.4; O2SAT 98
[2023-01-28 23:18] VITALS: BMI 28.8
[2023-01-28 23:24] VITALS: BMI 27.3
[2023-01-28 23:40] VITALS: RESP 17; O2SAT 98
[2023-01-29] MEDS: hydrOXYzine PAM 25 MG Capsule 50 MG PO (00:35)
[2023-01-29] MEDS: Phenobarbital 32.4 MG Tablet 64.8 MG PO ×5 (02:01→21:58)
[2023-01-29 06:47] VITALS: PULSE 70; RESP 17; O2SAT 98
[2023-01-29 07:26] VITALS: O2SAT 96
--- NOTE | 2023-01-29 08:57 | CASEMGMT ---
SW spoke with patient. Introduced self and role at [facility]. SW asked patient if he came into the hospital to detox and be part of the [facility] program or seizures. Patient told SW both. SW let patient know he will have to sign the form and his belongings will be locked up. Patient was in agreement. SW notified RN and supercharge repair supervisor. KAROLINE also called Anselmo pacs specialist. Gregoria Smith CERTIFIED NURSE PRACTITIONER [place]
[2023-01-29] MEDS: Thiamine Hydrochloride 100 MG Tablet PO (09:12)
[2023-01-29] MEDS: Folic Acid 1 MG Tablet PO (09:12)
[2023-01-29 09:28] VITALS: BP 144/76; PULSE 87; RESP 16; TEMP 36.5; O2SAT 97
--- NOTE | 2023-01-29 11:31 | ADDICTION ---
This lyric writer met with PT to conduct ASAM, MSE, AUDIT assessments and to plan for d/c. PT A+Ox4 and participated actively. All assessments completed. PT plans to f/u with individual counselor at [facility] for outpatient treatment services. PT did not indicate a need for transportation post d/c from [facility].
[2023-01-29 15:30] VITALS: BP 138/66; PULSE 86; RESP 18; TEMP 36.6; O2SAT 98
--- NOTE | 2023-01-29 19:19 | PN.HOSP_ITS ---
Reason for Visit Reason for Visit: Diagnoses Alcohol dependence, uncomplicated (01/28/23) Alcohol use, unspecified with withdrawal, unspecified (01/28/23) Unspecified convulsions (01/28/23) Personal history of other diseases of the circulatory system (01/28/23) Subjective Subjective Patient was seen and examined today, he appears drowsy today but responds appropriately to questions. Patient was admitted late last night for alcohol detox services, he had a seizure at home. Patient states he was trying to quit on his own at home and had stopped drinking the day before. Objective Data Objective Data Vital Signs: Vital Signs Temp Pulse Resp BP Pulse Ox O2 Del Method 97.8 F 86 18 138/66 H 98 Room Air 01/29/23 15:30 01/29/23 15:30 01/29/23 15:30 01/29/23 15:30 01/29/23 15:30 01/29/23 15:30 Oxygen Delivery Method Room Air Weight: 107.4 kg Body Mass Index (BMI) 27.3 Intake & Output: Intake and Output for Last 24 Hours 01/27/23 01/28/23 01/29/23 23:59 23:59 23:59 Intake Total 150 / 150 Output Total 150 / 150 Balance 150 / 150 -150 / -150 Lab / Micro Data Result Diagrams: 01/28/23 22:25 01/28/23 22:25 Labs: Laboratory Results - last 24 hr 01/28/23 22:25: WBC 8.1, RBC 3.78 L, Hgb 14.1, Hct 41.6, MCV 110.1 H, MCH 37.3 H , MCHC 33.9, RDW Std Deviation 55.4 H, RDW Coeff of Stefanie 13.5, Plt Count 152, MPV 9.4, Immature Gran % (Auto) 0.500, Neut % (Auto) 86.8 H, Lymph % (Auto) 5.7 L, [place] % (Auto) 6.5, Eos % (Auto) 0.0, Baso % (Auto) 0.5, Absolute Neuts (auto) 7.0, Absolute Lymphs (auto) 0.46 L, Nucleated RBC % 0, Differential Comment SCANNED 01/28/23 22:25: Sodium 138, Potassium 3.3 L, Chloride 99, Carbon Dioxide 29.0, A nion Gap 10, BUN 7, Creatinine 0.72, Est GFR (MDRD) Af Amer 154, Est GFR (MDRD) Non-Af 127, BUN/Creatinine Ratio 9.7 L, Glucose 137 H, Calcium 9.4 01/28/23 22:25: Ethyl Alcohol < 3.0 Radiography Diagnostic Testing: Radiology Impression Brain CT 01/28/23 22:16 IMPRESSION: Negative Brain CT without contrast. Electronically Signed: Shai Lea MD at 23:02 EST , Physical Exam Const alert, oriented x3 and no apparent distress Constitutional Narrative: Patient appears mildly somnolent during my examination today General Appearance: cooperative, well kempt and well developed Orientation / Consciousness: awake, oriented to person, oriented to place and oriented to time HEENT normocephalic, head/scalp atraumatic and moist oral mucous membranes Eyes PERRL, EOMs intact bilaterally and conjunctivae normal Neck supple, no JVD, thyroid normal and no carotid bruits General: trachea midline Resp normal respiratory effort, no retractions, no use of accessory muscles and clear to auscultation bilaterally Auscultation: Negative for rales, rhonchi or wheezes Cardio regular rate, regular rhythm, S1 normal heart sound, S2 normal heart sound, no murmurs, no rub and no gallops GI normal to inspection, nondistended, normoactive bowel sounds, soft to palpation, non-tender and non-distended Extremity no clubbing, cyanosis or edema Skin no rashes or lesions noted General Skin Exam: no breakdown Neuro oriented x3, CN's II-XII intact bilaterally, moves all extremities, no focal motor deficits and no sensory deficits noted Sensorium / Orientation: awake, alert, oriented to person, oriented to place and oriented to time Speech: speech normal Psych affect normal Assessment & Plan Assessment/Plan (1) Alcoholism: PLAN: Plan 1. Acute alcohol withdrawal-without DTs-patient will remain on his current medications, addiction social services manager states that the patient will do an outpatient detox at 180 after discharge #2 alcohol withdrawal seizures-patient does not need medication for this at this time #3 chronic alcoholism-complicates care, medical course, recovery, and prognosis #4 essential hypertension-patient is on amlodipine at home, I will restart this medication Total clinical time spent by myself addressing the patient's medical issues, reviewing all of the data, and collaborating with patient's care team: 35 minutes Charges/Coding Visit Charges Inpatient E&M: 43029 Subs Hosp L2
[2023-01-29] MEDS: amLODIPine 5 MG Tablet PO (19:51)
[2023-01-29 19:57] VITALS: BP 145/106; PULSE 86; RESP 16; TEMP 36.6; O2SAT 99
[2023-01-29] MEDS: traZODone 50 MG Tablet PO (21:58)
[2023-01-30 02:00] VITALS: BP 135/68; PULSE 85; RESP 16; TEMP 36.6; O2SAT 98
[2023-01-30] MEDS: Phenobarbital 32.4 MG Tablet 64.8 MG PO ×3 (02:10→09:20)
[2023-01-30 07:59] VITALS: O2SAT 98
[2023-01-30 08:00] VITALS: BP 128/100; PULSE 72; RESP 18; TEMP 37; O2SAT 98
[2023-01-30] MEDS: Thiamine Hydrochloride 100 MG Tablet PO (09:20)
[2023-01-30] MEDS: amLODIPine 5 MG Tablet PO (09:20)
[2023-01-30] MEDS: Folic Acid 1 MG Tablet PO (09:21)
[2023-01-30 11:35] VITALS: BP 130/91; PULSE 76; RESP 18; TEMP 37; O2SAT 97
[2023-01-30 17:21] VITALS: BP 132/107; PULSE 78; RESP 18; TEMP 36.9; O2SAT 100
--- NOTE | 2023-01-30 17:30 | PCM.PN.HOSP ---
Reason for Visit Reason for Visit: Diagnoses Alcohol dependence, uncomplicated (01/28/23) Alcohol use, unspecified with withdrawal, unspecified (01/28/23) Unspecified convulsions (01/28/23) Personal history of other diseases of the circulatory system (01/28/23) Subjective Subjective Patient was seen and examined today, he states he does not feel as if he is ready to go home today still a little bit nervous and anxious. I have elected to reduce the patient's phenobarb today however because I do not feel he needs the high-dose phenobarb at this time. Objective Data Objective Data Vital Signs: Vital Signs Temp Pulse Resp BP Pulse Ox O2 Del Method O2 Flow Rate 98.4 F 78 18 132/107 H 100 Room Air 2 01/30/23 17:21 01/30/23 17:21 01/30/23 17:21 01/30/23 17:21 01/30/23 17:21 01/30/23 17:21 01/30/23 07:59 Oxygen Flow Rate (L/min) 2 Oxygen Delivery Method Room Air Weight: 107.4 kg Body Mass Index (BMI) 27.3 Intake & Output: Intake and Output for Last 24 Hours 01/28/23 01/29/23 01/30/23 23:59 23:59 23:59 Intake Total 150 / 150 0 / 0 480 / 480 Output Total 150 / 150 Balance 150 / 150 -150 / -150 480 / 480 Lab / Micro Data Result Diagrams: 01/28/23 22:25 01/28/23 22:25 Physical Exam Narrative alert, oriented x3 and no apparent distress Constitutional Narrative: Patient appears mildly somnolent during my examination today General Appearance: cooperative, well kempt and well developed Orientation / Consciousness: awake, oriented to person, oriented to place and oriented to time HEENT normocephalic, head/scalp atraumatic and moist oral mucous membranes Eyes PERRL, EOMs intact bilaterally and conjunctivae normal Neck supple, no JVD, thyroid normal and no carotid bruits General: trachea midline Resp normal respiratory effort, no retractions, no use of accessory muscles and clear to auscultation bilaterally Auscultation: Negative for rales, rhonchi or wheezes Cardio regular rate, regular rhythm, S1 normal heart sound, S2 normal heart sound, no murmurs, no rub and no gallops GI normal to inspection, nondistended, normoactive bowel sounds, soft to palpation, non-tender and non-distended Extremity no clubbing, cyanosis or edema Skin no rashes or lesions noted General Skin Exam: no breakdown Neuro oriented x3, CN's II-XII intact bilaterally, moves all extremities, no focal motor deficits and no sensory deficits noted Sensorium / Orientation: awake, alert, oriented to person, oriented to place and oriented to time Speech: speech normal Psych affect normal Assessment & Plan Assessment/Plan (1) Alcohol withdrawal seizure: (2) Alcoholism: PLAN: Plan 1. Acute alcohol withdrawal-without DTs-patient will remain on his current medications, addiction neonatal social worker states that the patient will do an outpatient detox at [facility] after discharge, again I have decreased the patient's phenobarb #2 alcohol withdrawal seizures-patient does not need medication for this at this time #3 chronic alcoholism-complicates care, medical course, recovery, and prognosis #4 essential hypertension-patient is on amlodipine Total clinical time spent by myself addressing the patient's medical issues, reviewing all of the data, and collaborating with patient's care team: 35 minutes Charges/Coding Visit Charges Inpatient E&M: 07444 Subs Hosp L2
[2023-01-30 21:36] VITALS: BP 133/106; PULSE 72; RESP 16; TEMP 37.3; O2SAT 97
[2023-01-30] MEDS: traZODone 50 MG Tablet PO (21:37)
[2023-01-31 03:29] VITALS: BP 140/106; PULSE 70; RESP 16; TEMP 36.7; O2SAT 100
[2023-01-31] MEDS: hydrOXYzine PAM 25 MG Capsule 50 MG PO (03:33)
--- NOTE | 2023-01-31 03:52 | NURSING ---
Pt is alert, walking in room states he wants a nail clipper to get in the bin to get his boots so he can get the snuff out of his car. Reminded pt that he is not to be getting in the bin. He will get his belongings back when he is discharged and that he is not to leave the floor. Pt is cooperative but insists he really just wants his snuff. Pt does have a nicotine patch on. discussed possibility of nicotine gum with patient. Will discuss with physician to see if is able to be ordered. Medicated with vistaril for anxiety. and snacks given.
[2023-01-31 07:05] VITALS: O2SAT 98
--- NOTE | 2023-01-31 09:28 | DCINST_ITS ---
Discharge Instructions Diet Discharge Diet: No restrictions Activity Discharge Activity: Return to Normal Activity Weight Bearing Status: Full weight bearing Follow Up Care Test Results: Test results from this visit will be discussed in further detail at your follow- up appointment, if applicable. Discharge Plan Admission Admit Date/Time: 01/28/23 22:34 Primary Reason for Your Visit: alcohol detox Attending Provider: Froilan Landaverde Primary Care Provider: Blas Villagomez Consulting Providers: Jono Sheppard Instructions Additional Instructions / Restrictions: follow up with outpatient detox Discharge Orders/Prescriptions Prescriptions: New trazodone 50 mg Tablet 50 mg PO QHS Qty: 30 0RF amlodipine 5 mg Tablet 5 mg PO DAILY Qty: 30 0RF Discontinued trazodone 50 mg Tablet 50 mg PO QHS No Action amlodipine 5 mg Tablet 5 mg PO DAILY Referrals / Follow Up: Blas Villagomez MD [Primary Care Provider] - Within 1 Month Disposition Disposition (needs filled in before D/C Order can be placed): Home, Self Care
[2023-01-31 09:42] VITALS: BP 120/91; PULSE 72; RESP 16; TEMP 37.1; O2SAT 100
[2023-01-31] MEDS: Thiamine Hydrochloride 100 MG Tablet PO (09:42)
[2023-01-31] MEDS: amLODIPine 5 MG Tablet PO (09:42)
[2023-01-31] MEDS: Folic Acid 1 MG Tablet PO (09:42)
--- NOTE | 2023-01-31 10:40 | PCM.DC.SUM ---
Providers Date of Admission: 01/28/23 Date of Discharge: 01/31/23 Primary Care Physician: Dr. Blas Villagomez MD Reason For Visit: ALCOHOL WITHDRAWAL SEIZURES Diagnosis Discharge Diagnosis (1) Alcohol withdrawal seizure: Status: Inactive Code(s): F10.939 - Alcohol use, unspecified with withdrawal, unspecified; R56.9 - Unspecified convulsions (2) Alcoholism: Status: Acute Code(s): F10.20 - Alcohol dependence, uncomplicated Plan 1. Acute alcohol withdrawal-without DTs-patient will remain on his current medications, addiction social service assistant states that the patient will do an outpatient detox at [facility] after discharge, again I have decreased the patient's phenobarb #2 alcohol withdrawal seizures-patient does not need medication for this at this time #3 chronic alcoholism-complicates care, medical course, recovery, and prognosis #4 essential hypertension-patient is on amlodipine Total clinical time spent by myself addressing the patient's medical issues, reviewing all of the data, and collaborating with patient's care team: 35 minutes Medications at Discharge Home Medications amlodipine 5 mg tablet 5 mg PO DAILY bp 05/18/22 amlodipine 5 mg tablet 5 mg PO DAILY #30 tabs 01/31/23 trazodone 50 mg tablet 50 mg PO QHS #30 tabs 01/31/23 Hospital Course Operations None Procedures None Summary of Care Provided Minutes Spent on Discharge: 31 Hospital Course: This 43-year-old white male was seen in the emergency room at [facility] after having a witnessed seizure at home, patient has a history of alcoholism and had been reducing his alcohol intake over the last few days prior to being seen in the emergency room. There was 2 witnessed seizures at home. Patient voiced a request to be detoxed in the hospital. Patient was admitted to PCU, seen in consultation by addiction social service assistant, and orders were entered using the alcohol detox order set. Patient had no additional seizures during his hospitalization. On 01/31/2023, patient was seen and examined: On examination he appeared in good health and spirits. Vital signs as documented. Skin warm and dry and without overt rashes. Neck without JVD, neck was supple, trachea midline, thyroid was normal. Lungs clear bilaterally, normal air movement was noted. Heart exam notable for regular rhythm, normal sounds and absence of murmurs, rubs or gallops. Abdomen unremarkable and without evidence of organomegaly, masses, or abdominal aortic enlargement. Bowel sounds are present, abdomen is not distended. Extremities nonedematous, no cyanosis was noted, no clubbing was noted. Neuro: Cranial nerves II through XII are grossly intact, no focal motor deficits were noted, sensation to light touch and pinprick intact, motor exam 5/5 throughout. Psych: Patient is alert and oriented x3, he does not appear anxious or depressed, he does not appear agitated. Patient appears stable for discharge home on 01/31/2023, patient was set up to follow-up with outpatient [facility] after discharge from the hospital. Weight / BMI Weight Weight: 107.4 kg Body Mass Index (BMI) 27.3 ABG / Lab / Microbiology Data Result Diagrams: 01/28/23 22:25 01/28/23 22:25 D/C Instructions Discharge Diet: No restrictions Weight Bearing Status: Full weight bearing Meaningful Use Info Meaningful Use Diagnoses (Choose all that apply): None applicable Discharge Plan Admission Admit Date/Time: 01/28/23 22:34 Primary Reason for Your Visit: alcohol detox Attending Provider: Froilan Landaverde Primary Care Provider: Blas Villagomez Consulting Providers: Jono Sheppard Instructions Additional Instructions / Restrictions: follow up with outpatient detox Discharge Orders/Prescriptions Prescriptions: New trazodone 50 mg Tablet 50 mg PO QHS Qty: 30 0RF amlodipine 5 mg Tablet 5 mg PO DAILY Qty: 30 0RF Discontinued trazodone 50 mg Tablet 50 mg PO QHS No Action amlodipine 5 mg Tablet 5 mg PO DAILY Referrals / Follow Up: Blas Villagomez MD [Primary Care Provider] - Within 1 Month Disposition Disposition (needs filled in before D/C Order can be placed): Home, Self Care Charges/Coding Visit Charges Inpatient E&M: 99824 Disch Hosp >30min
--- NOTE | 2023-01-31 10:41 | PHA.DC.MR ---
Pharmacy Service has performed discharge medication reconciliation for this patient. No new medications at time of discharge review. Medications reviewed are previously reported home medications. Home Medications amlodipine 5 mg tablet 5 mg PO DAILY #30 tabs 01/31/23 trazodone 50 mg tablet 50 mg PO QHS #30 tabs 01/31/23 The patient's discharge medication list was reviewed for discrepancies and discrepancies were resolved.
== END 2023-01-31 11:06 | disposition home or self-care (01) | DRG 772 ==
LOC: ED 22:43 → PCU 23:20
PROVIDERS: Admitting Provider Hospitalist; Emergency Provider Emergency Medicine; PCP Family Medicine; Visit Provider Internal Medicine
DX: F10.239 Alcohol dependence with withdrawal, unspecified (principal); R56.9 Unspecified convulsions; Y90.0 Blood alcohol level of less than 20 mg/100 ml; I10 Essential (primary) hypertension; F17.220 Nicotine dependence, chewing tobacco, uncomplicated; Z79.899 Other long term (current) drug therapy
CPT/HCPCS: 70450; 80048; 82077; 85025; 93005; 99284; 99406; J7030; A4216

== ENCOUNTER → 2023-04-17 | Outpatient (CLI) | payer MEDICAID, SELFPAY ==
--- NOTE | 2023-04-17 15:17 | VDLE_ITS ---
Reason For Study: LLE PAIN RIGHT LEFT CFV is compressible, spontaneous, phasic, GSV is normal. competent and demonstrates normal CFV is compressible, spontaneous, phasic, augmentation. competent, and demonstrates normal Procedure augmentation. This is a venous duplex using B-mode, color FV proximal is compressible, spontaneous, flow and spectral Doppler. phasic, competemt and demonstrates normal Exam performed in department. augmentation. A preliminary report was called and/or faxed to Dr. Kothari's office @ 3:45 pm. FV mid to distal, Pop V, T/P trunk, PTV, PERV are dilated and occluded C/W ACUTE DVT. VL/Venous Duplex US, Unilateral Interpretation Summary Acute deep vein thrombosis is noted in the left femoral vein, popliteal vein, t ibioperoneal trunk vein, posterior tibial vein, peroneal vein Ordering Physician: Sarah Harvey Referring Physician: Blas Villagomez Performed By: Anca Corcoran, MIKA, RVT
== END | disposition home or self-care (01) ==
LOC: CVS 15:16
PROVIDERS: PCP Family Medicine; Referring Provider Physician Assistant; Visit Provider Physician Assistant
DX: I82.412 Acute embolism and thrombosis of left femoral vein (principal); I82.432 Acute embolism and thrombosis of left popliteal vein; I82.442 Acute embolism and thrombosis of left tibial vein; I82.452 Acute embolism and thrombosis of left peroneal vein
CPT/HCPCS: 93971

== ENCOUNTER → 2023-04-24 | Outpatient (CLI) | payer MEDICAID, SELFPAY ==
--- NOTE | 2023-04-24 12:53 | VDLE_ITS ---
Reason For Study: Pain LLE RIGHT LEFT CFV is compressible, spontaneous, phasic, GSV is normal. competent and demonstrates normal CFV is compressible, spontaneous, phasic, augmentation. competent, and demonstrates normal Procedure augmentation. This is a venous duplex using B-mode, color Lt FV mid-distal, Lt PopV, Lt T/P Trunk, Lt flow and spectral Doppler. GastrocV, Lt PTV, and Lt PeroV are DILATED Exam performed in department. and NON COMPRESSIBLE consistent with acute A preliminary report was called and/or faxed DVT. to Sarah [place]. VL/Venous Duplex US, Unilateral Interpretation Summary Acute deep vein thrombosis is noted in the left femoral vein, popliteal vein, t ibioperoneal trunk vein, gastrocnemius vein, posterior tibial vein, peroneal vein. Ordering Physician: Sarah Harvey Referring Physician: Blas Villagomez Performed By: Sofia Church, MIKA, RVT
== END | disposition home or self-care (01) ==
LOC: CVS 12:52
PROVIDERS: PCP Family Medicine; Referring Provider Physician Assistant; Visit Provider Physician Assistant
DX: I82.402 Acute embolism and thrombosis of unspecified deep veins of left lower extremity (principal); M79.605 Pain in left leg
CPT/HCPCS: 93971